=== PATIENT | male | born 1945 | race Caucasian/White ===

== ENCOUNTER 2018-01-26 10:14 | Inpatient (IN) | payer OTHER ==
--- NOTE | 2018-01-19 14:07 | HP ---
DATE OF ADMISSION: 01/26/2018 DATE OF DICTATION: 12/28/2017 Patient to be admitted to the [facility] for surgery in the near future, date to be determined. HISTORY: This is a 72-year-old man admitted to the hospital for open bilateral component separation repair of a complex, chronically incarcerated ventral hernia with mesh. The patient had undergone a partial liver resection for a hepatoma secondary to underlying hepatitis C in 2015. He developed the hernia after the generous midline incision had been healed. Patient states he has been adequately treated for hepatitis C. Patient states his liver is functioning well. Apparently, a recent CAT scan of the abdomen and pelvis demonstrates no evidence of recurrent liver disease. PAST MEDICAL HISTORY: Significant for hypertension and diabetes. No history of heart disease, respiratory, renal, or hepatic insufficiency. PAST SURGICAL HISTORY: Significant only for his partial liver resection in June 2016. ALLERGIES: PENICILLIN. REGULAR MEDICATIONS: Labetalol, metformin, glipizide, spironolactone, pantoprazole, Edarbi, and bumetanide. SOCIAL HISTORY: Negative tobacco. Negative alcohol. FAMILY HISTORY: Both parents lived into their 90s with no significant medical issues. One sibling well. REVIEW OF SYSTEMS: Nil. PHYSICAL EXAMINATION: Abdomen: Patient has a large protuberant abdomen with a large generous scar stemming from the xiphoid process into the lower abdomen. There is herniation of the central portion of the generous midline incision which is partially but not entirely reducible. Patient also has a very large, associated diastasis recti involving the entire upper midline of the abdomen. IMPRESSION: Complex, chronically incarcerated, incisional/ventral abdominal wall hernia. PLAN: Open bilateral component separation repair of chronically incarcerated, complex, incisional/ventral abdominal wall hernia with mesh. Indications, alternatives, possible complications reviewed. Issues surrounding the mesh including, but not limited to, infection, rejection, migration, and erosion reviewed. Consent obtained. Patient to be seen preoperatively by his PMD. Please refer to those notes for those medical details. DAVIS SMITH M.D. [id number] cc: , [address] [place] [address]
[2018-01-26] MEDS ORDERED: CLINDAMYCIN PHOSPHATE 600 MG/4 ML VIAL ONE (10:52)
[2018-01-26] MEDS ORDERED: TAMSULOSIN HCL 0.4 MG CAP.ER.24H (FP) ONE (10:52)
[2018-01-26 11:08] VITALS: BMI 28.3
[2018-01-26] MEDS ORDERED: ONDANSETRON 4 MG/2 ML VIAL IVPUSH PRN (12:04)
[2018-01-26] MEDS ORDERED: ACETAMINOPHEN 325 MG TABLET (FP) PO PRN (12:04)
[2018-01-26] MEDS ORDERED: SODIUM CHLORIDE 1,000 ML IV SCH (12:15)
[2018-01-26] MEDS ORDERED: DEXAMETHASONE SOD PHOSPHATE 4 MG/1 ML VIAL ONE ×2 (14:00→14:37)
[2018-01-26] MEDS ORDERED: LIDOCAINE HCL/PF 2% SDV 5ML VIAL ONE (14:07)
[2018-01-26] MEDS ORDERED: PROPOFOL 20 ML ONE ×2 (14:07→14:56)
[2018-01-26] MEDS ORDERED: MIDAZOLAM HCL 2 MG/2 ML SINGLE DOSE VIAL ONE (14:07)
[2018-01-26] MEDS ORDERED: ROCURONIUM BROMIDE 50 MG/5 ML VIAL ONE ×2 (14:10→15:02)
[2018-01-26] MEDS ORDERED: CLINDAMYCIN 600 MG PREMIX BAG IVPB ONE (14:18)
[2018-01-26] MEDS ORDERED: ePHEDrine SULFATE 50 MG/1 ML AMPULE ONE (14:28)
[2018-01-26] MEDS ORDERED: BUPIVACAINE HCL/PF 0.5% (5MG/ML) 10 ML VIAL IJ ONE (14:59)
[2018-01-26] MEDS ORDERED: DEXAMETHASONE SOD PHOSPHATE 4 MG/1 ML VIAL IM ONE (15:00)
[2018-01-26] MEDS ORDERED: NEOSTIGMINE METHYLSULFATE 0.5 MG/ML - 10 ML MDV ONE (15:51)
[2018-01-26] MEDS ORDERED: GLYCOPYRROLATE 0.2 MG/1 ML VIAL ONE (15:51)
[2018-01-26] MEDS ORDERED: LACTATED RINGERS SOLUTION 1,000 ML IV SCH (16:30)
[2018-01-26] MEDS: INSULIN SLIDING SCALE (NOVOLOG) 1 VIAL SQ SCH (19:01)
[2018-01-26] MEDS: MORPHINE SULFATE 10 MG/1 ML *VIAL IVPUSH PRN (20:09)
[2018-01-26] MEDS: oxyCODONE HCL 5 MG TABLET PO PRN (21:41)
[2018-01-26] MEDS: LABETALOL HCL 200 MG TABLET (FP) PO SCH (21:41)
[2018-01-27] MEDS: oxyCODONE HCL 5 MG TABLET PO PRN ×2 (01:52→22:09)
[2018-01-27] MEDS: metFORMIN HCL 500 MG TABLET (FP) PO SCH (06:46)
[2018-01-27] MEDS: INSULIN SLIDING SCALE (NOVOLOG) 1 VIAL SQ SCH ×3 (06:46→17:51)
--- NOTE | 2018-01-27 08:02 | OP ---
DATE OF OPERATION: 01/26/2018 PREOPERATIVE DIAGNOSIS: Complex, chronically incarcerated ventral/incisional abdominal wall hernia. POSTOPERATIVE DIAGNOSIS: Complex, chronically incarcerated ventral/incisional abdominal wall hernia. PROCEDURE PERFORMED: Open bilateral component separation, repair of complex, chronically incarcerated ventral/incisional abdominal wall hernia with mesh/ excision abdominal wall devitalized skin (70 cubic centimeters)/lysis of adhesions/ bilateral rectus sheath block as per kindergarten instructional assistant. SURGEON: Dalton Lewis M.D. ACCOUNT ADJUSTER: Andrea Wilkerson M.D. ANESTHESIA: Blas Siddiqui M.D. (general) INDICATIONS: This is a 72-year-old man who undergone an exploratory laparotomy and liver resection for hepatectomy in 2016, secondary to underlying hepatitis C. He apparently has been free of disease since that time. Unfortunately, he went on to develop a complex, chronically incarcerated incisional hernia with significant diastasis of the upper abdomen. He presents for repair. The indications, alternatives and possible complications were reviewed. Consent was obtained. DESCRIPTION OF PROCEDURE: With the patient in the supine position and after general anesthesia, the abdomen was prepped and draped in the usual sterile fashion using chlorhexidine. The thinned devitalized skin of the scar of the midline was excised and delivered and sent as a specimen. The subcutaneous tissues were . The large hernia sac was easily encountered. It was incised. Lysis of adhesions ensued, freeing the small bowel and omentum from the ring of the sac and the undersurface of the anterior abdominal wall. Ultimately the midline was opened throughout the length of the scar, beginning in the upper abdomen and extending toward the pubis. First directing our attention to the patient's right side, the posterior rectus sheath was from the overlying rectus muscle fibers using sharp dissection, creating a retrorectus space. This dissection was carried out in the inferior, lateral and superior directions, ultimately arriving at the junction of the rectus musculature with the transversus and oblique musculature. Separation of the oblique musculature from the underlying transversus musculature ensued, extending the retrorectus point into the space created by the separation. Again, the dissection was carried out inferiorly, laterally and superiorly. Now directing our attention to the patient's left side, again the posterior rectus sheath was from the overlying left rectus muscle fibers, again creating the left retrorectus space. Dissection again was carried out in the inferior, lateral and superior directions, ultimately arriving at the junction of the left rectus with the lateral musculature. The left external oblique musculature was from the underlying left transversus musculature, creating a space which was continuous with the left retrorectus space. Again, the dissection was carried out inferiorly, laterally and superiorly. The posterior midline was then recreated, suturing the posterior fascia together in a continuous fashion using 2-0 V-Loc suture. A composite mesh was then fashioned at the table using a piece of Versatex Mesh measuring 30 x 30 cm in size. This was fastened to a piece of Phasix Mesh measuring 25.4 x 30.5 cm. This was accomplished with circumferential placement of interrupted 3-0 Vicryl sutures. The composite mesh was then placed in the retrorectus space with the Phasix side down. It was fanned out in the space in all directions, covering the entire space that had been created by the dissection bilaterally. The mesh was fastened circumferentially using an AbsorbaTack and counter-palpation. Adequate hemostasis was ensured. The wound was irrigated. A rectus sheath block bilaterally was accomplished, injecting 40 mL of Marcaine which was mixed with 5 mL of Decadron. The anterior fascia was then approximated using number 1 PDS suture material, beginning at each end of the wound, with the suture tied at the wound midpoint, leaving the composite mesh entirely in the retrorectus space. The subcutaneous space was irrigated and adequate hemostasis ensured. A Gera-Cui drain was placed in the subcutaneous space and exited through a separate stab wound at the level of the right lower abdominal wall, where the drain was tacked to the skin with 2-0 silk suture material. The skin edges were approximated using metallic clips, and the procedure was terminated. Needle, sponge and instrument count correct. ESTIMATED BLOOD LOSS: Minimal. SPECIMENS: Included devitalized skin. IMPLANTS: Included Versatex Mesh (30 x 30 cm) as well as Phasix Mesh (25.4 x 30.5 cm). DRAINS: One LEXI. The patient tolerated the procedure and the procedure was terminated. Jameson [id number] MTDD
[2018-01-27] MEDS: MORPHINE SULFATE 10 MG/1 ML *VIAL IVPUSH PRN ×3 (09:01→18:55)
[2018-01-27] MEDS ORDERED: PT OWN MED DRAWER 7, Y5N ONE (09:48)
[2018-01-27] MEDS: SPIRONOLACTONE 25 MG TABLET (FP) PO SCH (09:59)
[2018-01-27] MEDS: BUMETANIDE 1 MG TABLET PO SCH (10:00)
[2018-01-27] MEDS: LABETALOL HCL 200 MG TABLET (FP) PO SCH ×2 (10:00→22:05)
[2018-01-27] MEDS ORDERED: PANTOPRAZOLE 40 MG TABLET (FP) PO SCH (10:00)
[2018-01-27] MEDS: PANTOPRAZOLE SODIUM 40 MG VIAL IVPUSH SCH (10:01)
[2018-01-27] MEDS: ENOXAPARIN NA (PORCINE) 40 MG/0.4 ML DISP.SYRIN SQ SCH (10:01)
--- NOTE | 2018-01-27 11:08 | PN ---
Progress Note (short form) - Note Progress Note: surgery pt seen and examined. feels sore. oob. voiding. tolerating diet. afebrile abd- soft, minimal tendeness, heather serous, incision clean A/P 1) Pod#1- regular diet, stop ivf, cont heather,wear binder 2) pt eval for stair training 3) prophylaxis- lovenox, protonix, oob, spirometer possible d/c tomorrow
[2018-01-27] MEDS: glipiZIDE-XL 5 MG TAB.ER.24 PO SCH (12:39)
--- NOTE | 2018-01-27 12:57 | PN ---
Progress Note, Physician Chief Complaint: s/p ventral hernia repair under general anesthesia. post op day one History of Present Illness: PRN opiod for post op pain control - Current Medication List Current Medications: Active Medications Acetaminophen (Tylenol -) 650 mg PO Q4H PRN PRN Reason: FEVER Bumetanide (Bumex -) 1 mg PO DAILY [facility] Last Admin: 01/27/18 10:00 Dose: Not Given Enoxaparin Sodium (Lovenox -) 40 mg SQ DAILY [facility] Last Admin: 01/27/18 10:01 Dose: 40 mg Glipizide (Glucotrol Xl -) 5 mg PO DAILY@0700 [facility] Last Admin: 01/27/18 12:39 Dose: 5 mg Insulin Aspart (Novolog Vial Sliding Scale -) 1 vial SQ TIDAC [facility]; Protocol Last Admin: 01/27/18 11:46 Dose: 10 units Labetalol HCl (Normodyne -) 200 mg PO BID [facility] Last Admin: 01/27/18 10:00 Dose: Not Given Metformin HCl (Glucophage -) 500 mg PO AM [facility] Last Admin: 01/27/18 06:46 Dose: 500 mg Morphine Sulfate (Morphine Injection -) 8 mg IVPUSH Q3H PRN PRN Reason: PAIN LEVEL 7 - 10 Last Admin: 01/27/18 09:01 Dose: 8 mg Non-Formulary Medication (Azilsartan Med/Chlorthalidone [Edarbyclor 40-25 Mg Tablet]) 80 mg PO DAILY [facility] Ondansetron HCl (Zofran Injection) 4 mg IVPUSH Q6H PRN PRN Reason: NAUSEA Oxycodone HCl (Roxicodone -) 7.5 mg PO Q4H PRN PRN Reason: PAIN LEVEL 4 - 6 Last Admin: 01/27/18 01:52 Dose: 7.5 mg Pantoprazole Sodium (Protonix Iv) 40 mg IVPUSH DAILY [facility] Last Admin: 01/27/18 10:01 Dose: 40 mg Spironolactone (Aldactone -) 25 mg PO DAILY [facility] Last Admin: 01/27/18 09:59 Dose: Not Given - Objective Vital Signs: Vital Signs Temperature 98.4 F 01/27/18 06:00 Pulse Rate 76 01/27/18 06:00 Respiratory Rate 20 01/27/18 06:00 Blood Pressure 106/54 01/27/18 06:00 O2 Sat by Pulse Oximetry (%) 98 01/26/18 17:50 Constitutional: Yes: Well Nourished Cardiovascular: Yes: WNL Respiratory: Yes: WNL Gastrointestinal: Yes: Distention Assessment/Plan Patient doing well, no nausea or vomiting, patient complaining of pain especially when walking, pain control managed by surgical team. No adverse reaction to anesthetic. Please consult the dept of anesthesia if questions about pain control, otherwise the dept of anesthesiology will sign off care at this time
[2018-01-28] MEDS: MORPHINE SULFATE 10 MG/1 ML *VIAL IVPUSH PRN ×2 (01:34→07:32)
[2018-01-28] MEDS: INSULIN SLIDING SCALE (NOVOLOG) 1 VIAL SQ SCH ×2 (06:45→11:49)
[2018-01-28] MEDS: metFORMIN HCL 500 MG TABLET (FP) PO SCH (06:47)
[2018-01-28] MEDS: glipiZIDE-XL 5 MG TAB.ER.24 PO SCH (06:57)
[2018-01-28] MEDS ORDERED: PT OWN MED DRAWER 7, Y5N ONE (09:46)
[2018-01-28] MEDS: LABETALOL HCL 200 MG TABLET (FP) PO SCH (09:49)
[2018-01-28] MEDS: BUMETANIDE 1 MG TABLET PO SCH (09:49)
[2018-01-28] MEDS: SPIRONOLACTONE 25 MG TABLET (FP) PO SCH (09:56)
[2018-01-28] MEDS: ENOXAPARIN NA (PORCINE) 40 MG/0.4 ML DISP.SYRIN SQ SCH (09:56)
[2018-01-28] MEDS: PANTOPRAZOLE SODIUM 40 MG VIAL IVPUSH SCH (09:56)
[2018-01-28] MEDS ORDERED: IBUPROFEN 800 MG/8 ML IJ IVPB SCH (10:00)
[2018-01-28 14:28] VITALS: BP 115/67; PULSE 176; TEMP 98.5
--- NOTE | 2018-01-29 09:44 | DS ---
DATE OF ADMISSION: 01/26/2018 DATE OF DISCHARGE: 01/28/2018 ADMITTING DIAGNOSIS: Complex abdominal wall hernia. DISCHARGE DIAGNOSES: 1. Complex abdominal wall hernia. 2. Pre-existing diabetes and hypertension. BRIEF HISTORY: This is a 72-year-old male who presented to [facility] for surgical management of a complex abdominal wall hernia. On January 26, he underwent repair of this hernia utilizing mesh and component separation with myofascial release. Please reference Dr. Dalton Lewis's operative report for further details. Postoperatively, he did well. His pain was controlled with narcotics. He is being discharged home today, January 28, tolerating diet. He is ambulating, voiding, and pain controlled with oral narcotics. He will go home with a new prescription for Percocet. He will resume his home medications of bumetanide, glipizide, labetalol, metformin, Protonix, spironolactone, and azilsartan. He will go home with a Gera-Cui drain which he will empty daily and record the amount. He will wear an abdominal binder. He is on a regular diet. He will not lift anything more than 20 pounds. He will only sponge bathe. He will follow with Dr. Lewis next week to be evaluated for drain removal. At the time of his discharge, his incision is clean. His abdomen is soft. There is no infection, and the Gera-Cui drain is serous. He is also afebrile. DO GREGG [id number]
--- NOTE | 2018-02-01 17:01 | PATH ---
Surgical Pathology Report Patient Name: YAJAIRA ZAMUDIO Med. Rec. #: [id number] /Age/Gender: 1945 (Age: 72) / M Account: [id number] Location: [facility] MED/SURG Taken: 01/26/2018 Received: 01/27/2018 Reported: 02/01/2018 Physicians: Dalton Lewis M.D. Specimen(s) Received OLD SCAR Clinical History Ventral hernia Final Diagnosis OLD SCAR, EXCISION: SEGMENT OF SKIN WITH HYPERTROPHIC SCAR. Electronically Signed Erin Campa M.D. Gross Description Received in formalin labeled "old scar," is a 13.5 x 0.8 cm rendon, elongated portion of skin with a central, linear, well healed scar. Student Nurse sections are submitted in one cassette. /01/28/2018 [facility]01/28/2018
== END 2018-01-28 15:09 | disposition home or self-care (01) | DRG 337 ==
LOC: JASUSAT 10:14 → JSAMEDAYSX 12:04 → J8W 18:30
PROVIDERS: ADMIT Surgery; ATTEND Surgery
PROC: 0DNW0ZZ Release Peritoneum, Open Approach (ICD-10-PCS; 2018-01-26)
PROC: 0WBF0ZZ Excision of Abdominal Wall, Open Approach (ICD-10-PCS; 2018-01-26)
PROC: 0WUF0JZ Supplement Abdominal Wall with Synthetic Substitute, Open Approach (ICD-10-PCS; principal; 2018-01-26 12:00)
DX: K43.0 Incisional hernia with obstruction, without gangrene (principal); K66.0 Peritoneal adhesions (postprocedural) (postinfection); K43.6 Other and unspecified ventral hernia with obstruction, without gangrene; E11.9 Type 2 diabetes mellitus without complications; Z88.0 Allergy status to penicillin; I10 Essential (primary) hypertension; B19.20 Unspecified viral hepatitis C without hepatic coma; Z79.84 Long term (current) use of oral hypoglycemic drugs
CPT/HCPCS: 82962; 88304-TC; 94760; 97116-GP; 97161-GP; J7030

== ENCOUNTER 2020-03-13 08:13 | Day surgery (SDC) | payer BC ==
[2020-03-12 11:17] VITALS: BMI 30.8
[~2020-03-13 08:13] MED LIST: ACETAMINOPHEN 325 MG TABLET (FP) PO PRN
[2020-03-13] MEDS ORDERED: TROPICAMIDE 1% OPHTH SOLN 15 ML BOTTLE ONE (08:36)
[2020-03-13] MEDS ORDERED: CYCLOPENTOLATE HCL 1% OPHTH SOLN 2 ML BOTTLE ONE (08:37)
[2020-03-13] MEDS ORDERED: OFLOXACIN 0.3% OPHTHALMIC SOLUTION 5 ML BOTTLE ONE (08:37)
[2020-03-13] MEDS ORDERED: KETOROLAC TROMETHAMINE 0.5% EYE DROP 1 DROP DROPS ONE (08:37)
[2020-03-13] MEDS: PHENYLEPHRINE 2.5% OPHTH SOLN 15 ML BOTTLE OP SCH ×3 (08:50→09:10)
[2020-03-13] MEDS: CYCLOPENTOLATE HCL 1% OPHTH SOLN 2 ML BOTTLE OP SCH ×3 (08:50→09:10)
[2020-03-13] MEDS: OFLOXACIN 0.3% OPHTHALMIC SOLUTION 5 ML BOTTLE OP SCH ×3 (08:50→09:10)
[2020-03-13] MEDS: KETOROLAC TROMETHAMINE 0.5% EYE DROP 1 DROP DROPS OP SCH ×3 (08:50→09:10)
[2020-03-13] MEDS: TROPICAMIDE 1% OPHTH SOLN 15 ML BOTTLE OP SCH ×3 (08:50→09:10)
[2020-03-13] MEDS ORDERED: MIDAZOLAM HCL 2 MG/2 ML SINGLE DOSE VIAL ONE (09:44)
[2020-03-13] MEDS ORDERED: TETRACAINE 0.5% OPHTH SOLN 2 ML BOTTLE OS ONE (10:08)
[2020-03-13] MEDS ORDERED: LIDOCAINE HCL/PF 2% SDV 5ML VIAL PNB ONE (10:10)
[2020-03-13] MEDS ORDERED: LIDOCAINE HCL/PF 2% SDV 5ML VIAL INF ONE (10:10)
[2020-03-13] MEDS ORDERED: BUPIVACAINE HCL/PF 0.75% 10 ML VIAL PNB ONE ×2 (10:10→10:33)
[2020-03-13] MEDS ORDERED: TRYPAN BLUE 0.5 ML DISP.SYRIN IO ONE (10:12)
[2020-03-13] MEDS ORDERED: BUPIVACAINE HCL/PF 0.75% 10 ML VIAL ONE (10:26)
[2020-03-13] MEDS ORDERED: LIDOCAINE HCL/PF 1% SDV 5ML VIAL ONE (10:26)
[2020-03-13] MEDS ORDERED: LIDOCAINE HCL/PF 2% SDV 5ML VIAL ONE (10:26)
[2020-03-13] MEDS ORDERED: EPINEPHrine/PF 1 MG/1 ML (1:1,000) AMPULE ONE (10:26)
[2020-03-13] MEDS ORDERED: BSS (NA/CA/MG/K) BALANCED SALT SOLUTION OPHTH SOLN 15 ML BOTTLE ONE (10:26)
[2020-03-13] MEDS ORDERED: CHONDROITIN SU A/HYALUR SOD 1 KIT ONE (10:30)
[2020-03-13] MEDS ORDERED: LIDOCAINE HCL 1% PRESERVATIVE FREE - 30ML VIAL INF ONE (10:38)
[2020-03-13] MEDS ORDERED: CHONDROITIN SU A/HYALUR SOD 1 KIT IO ONE (10:38)
[2020-03-13 11:56] VITALS: BP 119/62; PULSE 61; TEMP 97.6
--- NOTE | 2020-03-13 17:08 | OP ---
DATE OF OPERATION: 03/13/2020 PREOPERATIVE DIAGNOSIS: Cataract, left eye. 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 PROCEDURE: Phacoemulsification of left cataract with capsule staining trypan blue and pupil expansion with iris hooks, and posterior chamber intraocular lens implantation. The lens used was [id number], 23.0 diopter power, serial number [id number]. ANESTHESIA: Peribulbar/modified Van Lint/MAC. COMPLICATIONS: None. DESCRIPTION OF PROCEDURE: The patient was brought to the operating room, the correct eye identified along with the operative site, as well as correct lens marquez. He was then given a peribulbar block under sedation with 5 mL of a 1:1 mixture of 0.75% bupivacaine and 2% lidocaine. Two milliliters of the same mixture was given as a modified Van Lint block. The eye was then prepped and draped in the usual sterile fashion, including 5% Betadine solution in the conjunctival sac and an eyelid drape. An eyelid speculum was then placed into the left eye. The eye was inspected, and a 4.5-mm pupil with pseudoexfoliation material on the lens capsule was noted. A paracentesis port was created, and intracameral lidocaine 1%, 0.5 mL was given. An air bubble was then placed in the eye and the anterior chamber stained with trypan blue. Viscoelastic was placed to inflate the anterior chamber. Five paracentesis ports were made as well as a temporal clear corneal wound. A total of 4 iris hooks were then inserted through the paracentesis to create a pupil expansion in a quin configuration. A continuous circular capsulorrhexis was successfully performed, the nucleus hydrodissected with BSS and removed with phacoemulsification. The remaining cortical material was irrigated and aspirated from the eye. Viscoelastic was injected to inflate the capsular bag. The lens was injected into the capsular bag. The iris hooks were removed and the viscoelastic irrigated and aspirated from the eye. All paracentesis and main wound were then stromal hydrated with BSS and tested for watertightness. No leakage was noted, no sutures were placed. Topical vancomycin given, the lid speculum removed and the eye patched and shielded and the patient discharged from the operating room in a stable condition. CLOVIS ADAMSON M.D. [id number]
== END 2020-03-13 12:40 | disposition home or self-care (01) ==
LOC: JASU-SURG 08:13
PROVIDERS: ATTEND Ophthalmology
PROC: 08RK3JZ Replacement of Left Lens with Synthetic Substitute, Percutaneous Approach (ICD-10-PCS; principal; 2020-03-13 10:00)
DX: H26.8 Other specified cataract (principal); H57.03 Miosis
CPT/HCPCS: 82962

== ENCOUNTER 2020-12-27 11:05 | Day surgery (SDC) | payer OTHER ==
[2020-12-24 11:48] VITALS: BMI 31.5
[2020-12-27 14:43] VITALS: BP 121/68; PULSE 65; TEMP 98
== END 2020-12-27 14:15 | disposition home or self-care (01) ==
LOC: FASU-ENDO 11:05
PROVIDERS: ATTEND Internal Medicine Gastroenterology
PROC: 0DB78ZX Excision of Stomach, Pylorus, Via Natural or Artificial Opening Endoscopic, Diagnostic (ICD-10-PCS; 2020-12-27)
PROC: 0DB18ZX Excision of Upper Esophagus, Via Natural or Artificial Opening Endoscopic, Diagnostic (ICD-10-PCS; 2020-12-27)
PROC: 0DB28ZX Excision of Middle Esophagus, Via Natural or Artificial Opening Endoscopic, Diagnostic (ICD-10-PCS; 2020-12-27)
PROC: 0DB38ZX Excision of Lower Esophagus, Via Natural or Artificial Opening Endoscopic, Diagnostic (ICD-10-PCS; 2020-12-27)
PROC: 0DB48ZX Excision of Esophagogastric Junction, Via Natural or Artificial Opening Endoscopic, Diagnostic (ICD-10-PCS; 2020-12-27)
PROC: 0DB98ZX Excision of Duodenum, Via Natural or Artificial Opening Endoscopic, Diagnostic (ICD-10-PCS; principal; 2020-12-27 13:16)
DX: K22.70 Barrett's esophagus without dysplasia (principal); K29.50 Unspecified chronic gastritis without bleeding; K22.8 Other specified diseases of esophagus
CPT/HCPCS: 82962; 88305-TC; 88342-TC

== ENCOUNTER 2022-03-20 07:29 | Day surgery (SDC) | payer OTHER ==
[2022-03-12 12:40] VITALS: BMI 28.7
[2022-03-20] MEDS ORDERED: LIDOCAINE HCL/PF 2% SDV 5ML VIAL ONE (08:29)
[2022-03-20] MEDS ORDERED: PROPOFOL 20 ML ONE ×2 (08:29)
[2022-03-20 10:23] VITALS: TEMP 98.4
[2022-03-20 10:34] VITALS: BP 141/85; PULSE 55
== END 2022-03-20 11:35 | disposition home or self-care (01) ==
LOC: FASU-ENDO 07:29
PROVIDERS: ATTEND Internal Medicine Gastroenterology
PROC: 0DB68ZX Excision of Stomach, Via Natural or Artificial Opening Endoscopic, Diagnostic (ICD-10-PCS; 2022-03-20)
PROC: 0DB18ZX Excision of Upper Esophagus, Via Natural or Artificial Opening Endoscopic, Diagnostic (ICD-10-PCS; 2022-03-20)
PROC: 0DB38ZX Excision of Lower Esophagus, Via Natural or Artificial Opening Endoscopic, Diagnostic (ICD-10-PCS; 2022-03-20)
PROC: 0DB48ZX Excision of Esophagogastric Junction, Via Natural or Artificial Opening Endoscopic, Diagnostic (ICD-10-PCS; principal; 2022-03-20 09:56)
DX: Z87.19 Personal history of other diseases of the digestive system (principal); K31.7 Polyp of stomach and duodenum; K22.70 Barrett's esophagus without dysplasia; K29.50 Unspecified chronic gastritis without bleeding; K21.00 Gastro-esophageal reflux disease with esophagitis, without bleeding
CPT/HCPCS: 82962; 88305-TC; 88342-TC